=== PATIENT | male | born 1970 | race Caucasian/White ===

== ENCOUNTER 2022-11-16 20:20 | Emergency (ER) | payer MEDICARE, MEDICAID ==
[~2022-11-16] VITALS: Ht 182.9 cm; Wt 72.7 kg
[2022-11-16 20:44] VITALS: BP 117/81
[2022-11-16 21:31] LABS: BASOPHILS # (AUTO) 0.1 X10'3 (0-0.2); EOSINOPHILS # (AUTO) 0.2 X10'3 (0-0.9); EOSINOPHILS % (AUTO) 2.7 % (0-6); HEMATOCRIT 37.4 % (42.0-52.0); HEMOGLOBIN 12.7 g/dl (14.0-17.9); LYMPHOCYTES # (AUTO) 2.5 X10'3 (1.1-4.8); MEAN CORPUSCULAR HEMOGLOBIN 30.8 PG (27.0-31.0); MEAN CORPUSCULAR VOLUME 90.8 FL (78-98); MEAN PLATELET VOLUME 7.1 FL (7.4-10.4); MONOCYTES # (AUTO) 0.5 X10'3 (0-0.9); MONOCYTES % (AUTO) 7.7 % (2-12); NEUTROPHILS # (AUTO) 3.2 X10'3 (1.8-7.7); NEUTROPHILS % (AUTO) 49.6 % (42-75); PLATELET COUNT 277 X10'3 (140-440); RED BLOOD COUNT 4.12 X10'6 (4.70-6.10); RED CELL DISTRIBUTION WIDTH 14.6 % (11.5-14.5); WHITE BLOOD COUNT 6.4 X10'3 (4.5-11.0)
[2022-11-16] MEDS ORDERED: LORazepam 2 mg/ml vial IM ONE (21:45)
[2022-11-16 21:46] LABS: ALANINE AMINOTRANSFERASE 32 U/L (12-78); ALBUMIN 3.8 G/DL (3.4-5.0); ALBUMIN/GLOBULIN RATIO 1.4 (1.1-1.5); ALKALINE PHOSPHATASE 137 IU/L (46-116); ANION GAP 8 (8-16); ASPARTATE AMINO TRANSFERASE 23 U/L (10-37); BILIRUBIN,TOTAL 0.3 MG/DL (0.1-1.0); BLOOD UREA NITROGEN 19 MG/DL (7-18); BUN/CREATININE RATIO 15.7 (10.0-20.0); CALCIUM 9.5 MG/DL (8.5-10.1); CHLORIDE 104 MMOL/L (99-107); CREATININE 1.21 MG/DL (0.60-1.10); GLUCOSE 97 MG/DL (70-104); POTASSIUM 4.2 MMOL/L (3.5-5.1); SODIUM 139 MMOL/L (135-145); TOTAL CARBON DIOXIDE 26.9 MMOL/L (24-32); TOTAL PROTEIN 6.5 G/DL (6.4-8.2); eGFR 63 ML/MIN
[2022-11-16 22:07] LABS: ETHANOL < 0.010 GM/DL (0.0-0.010)
== END 2022-11-16 22:05 | disposition home or self-care (01) ==
LOC: ER 20:21
DX: F41.9 Anxiety disorder, unspecified (principal); Z20.822 Contact with and (suspected) exposure to COVID-19; F15.10 Other stimulant abuse, uncomplicated; Z88.8 Allergy status to other drugs, medicaments and biological substances
CPT/HCPCS: 36415; 80053; 80320; 85025; 87811; 96372; 99283; J2060

== ENCOUNTER 2022-11-17 20:24 | Emergency (ER) | payer MEDICARE, MEDICAID ==
[~2022-11-17] VITALS: Ht 182.9 cm; Wt 70.5 kg
[2022-11-17] MEDS ORDERED: sulfamethoxazole/trimethoprim DS (800/160mg) tablet PO ONE (21:30)
[2022-11-17 21:58] LABS: BASOPHILS # (AUTO) 0.1 X10'3 (0-0.2); BASOPHILS % (AUTO) 1.2 % (0-1); EOSINOPHILS # (AUTO) 0.2 X10'3 (0-0.9); EOSINOPHILS % (AUTO) 3.5 % (0-6); HEMATOCRIT 37.6 % (42.0-52.0); HEMOGLOBIN 12.7 g/dl (14.0-17.9); LYMPHOCYTES # (AUTO) 2.6 X10'3 (1.1-4.8); LYMPHOCYTES % (AUTO) 38.8 % (21-51); MEAN CORPUSCULAR HEMOGLOBIN 31.2 PG (27.0-31.0); MEAN CORPUSCULAR HGB CONC 33.7 g/dL (33.0-36.5); MEAN CORPUSCULAR VOLUME 92.6 FL (78-98); MEAN PLATELET VOLUME 7.2 FL (7.4-10.4); MONOCYTES # (AUTO) 0.6 X10'3 (0-0.9); MONOCYTES % (AUTO) 8.4 % (2-12); NEUTROPHILS # (AUTO) 3.2 X10'3 (1.8-7.7); NEUTROPHILS % (AUTO) 48.1 % (42-75); PLATELET COUNT 304 X10'3 (140-440); RED BLOOD COUNT 4.06 X10'6 (4.70-6.10); RED CELL DISTRIBUTION WIDTH 14.4 % (11.5-14.5); WHITE BLOOD COUNT 6.7 X10'3 (4.5-11.0)
[2022-11-17 22:08] LABS: ALANINE AMINOTRANSFERASE 34 U/L (12-78); ALBUMIN 3.8 G/DL (3.4-5.0); ALBUMIN/GLOBULIN RATIO 1.4 (1.1-1.5); ALKALINE PHOSPHATASE 134 IU/L (46-116); ANION GAP 7 (8-16); ASPARTATE AMINO TRANSFERASE 24 U/L (10-37); BILIRUBIN,TOTAL 0.3 MG/DL (0.1-1.0); BLOOD UREA NITROGEN 18 MG/DL (7-18); BUN/CREATININE RATIO 17.1 (10.0-20.0); CALCIUM 9.7 MG/DL (8.5-10.1); CHLORIDE 105 MMOL/L (99-107); CREATININE 1.05 MG/DL (0.60-1.10); GLUCOSE 81 MG/DL (70-104); POTASSIUM 4.4 MMOL/L (3.5-5.1); SODIUM 142 MMOL/L (135-145); TOTAL CARBON DIOXIDE 29.9 MMOL/L (24-32); TOTAL PROTEIN 6.6 G/DL (6.4-8.2); eGFR 74 ML/MIN
[2022-11-17 22:18] LABS: ETHANOL < 0.010 GM/DL (0.0-0.010)
[2022-11-18 11:57] LABS: CLARITY,URINE CLEAR (Clear); COLOR,URINE STRAW (Yellow); GLUCOSE, URINE NEGATIVE (Neg); KETONES,URINE NEGATIVE (Neg); LEUKOCYTE ESTERASE ,URINE NEGATIVE (Neg); NITRITES, URINE NEGATIVE (Neg); OCCULT BLOOD,URINE NEGATIVE (Neg); PROTEIN,URINE NEGATIVE (Neg); UROBILINOGEN,URINE 0.2 E.U/dL (0.2-1.0)
[2022-11-18 11:58] LABS: UA COLLECTION TYPE CLN CATCH MIDSTREAM
[2022-11-18 12:22] LABS: URINE AMPHETAMINE SCREEN POSITIVE (Neg); URINE BARBITUATE SCREEN NEGATIVE (Neg); URINE BENZODIAZEPINES SCREEN NEGATIVE (Neg); URINE CANNABINOID SCREEN POSITIVE (Neg); URINE COCAINE SCREEN NEGATIVE (Neg); URINE METHADONE SCREEN NEGATIVE (Neg); URINE OPIATE SCREEN NEGATIVE (Neg); URINE PHENCYCLIDINE SCREEN NEGATIVE (Neg)
--- NOTE | 2022-11-18 18:27 | NUR ---
assumed care of the pt. the patient has eaten 100% of dinner tray and now is resting on the gurney with blanket. pt states no needs at this time.
--- NOTE | 2022-11-19 03:08 | NUR ---
PT IS SLEEPING ON THE GURNEY. RR ARE EQUAL AND UNLABORED. NO DISTRESS OBSERVED.
[2022-11-19 07:20] VITALS: BP 113/67
--- NOTE | 2022-11-19 07:21 | NUR ---
Patient woke up when I made my rouds. Patient a/o x4, no signs of distress. Patient aware that he got accepted at [facility] and will be transfer there today. Second Covid 19 test done and sent to lab.
--- NOTE | 2022-11-19 07:33 | NUR ---
Received a phone call from Damari at [facility] to confirm that patient has been accepted at [facility]. I let her know that the second Covid test result is negative. She requested for the latest covid 19 test result to be fax to [facility] [phone]. Asad notified about this request
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
== END 2022-11-19 09:06 | disposition still patient (30) ==
LOC: ER 20:24
DX: R45.851 Suicidal ideations (principal); Z20.822 Contact with and (suspected) exposure to COVID-19; L08.9 Local infection of the skin and subcutaneous tissue, unspecified; Z88.8 Allergy status to other drugs, medicaments and biological substances
CPT/HCPCS: 36415; 80053; 80305; 80320; 81003; 84443; 85025; 87811; 99285

== ENCOUNTER 2024-10-20 13:16 | Emergency (ER) | payer MEDICARE, MEDICAID ==
[~2024-10-20] VITALS: Ht 177.8 cm; Wt 68.2 kg
[~2024-10-20 13:16] MED LIST: FERR-28 PO; LORA-269 PO; PANT-47 PO
--- NOTE | 2024-10-20 14:38 | ELECTROCARDIOGRAPH REPORT ---
[facility] Test Date: 2024-10-20 Test Time: 14:36:04 Pat Name: MEDHAT COYNE Department: EMERGENCY ROOM Room: Gender: M Gwot Ia/[employer] Support: NIKUNJ : 1970 Requested By: STEPHANIE CORTÉS Order Number: [id number] Reading MD: Measurements Intervals [place] Rate: 66 P: -8 MO: 153 QRS: 49 QRSD: 86 T: 60 QT: 425 QTc: 446 Interpretive Statements Sinus rhythm Left ventricular hypertrophy Please click the below link to view image of tracing.
--- NOTE | 2024-10-20 14:51 | RADIOLOGY REPORT ---
CHEST RADIOGRAPH Indication: CP Technique: Single frontal view of the chest was obtained Comparison: None FINDINGS: Lines and Tubes: ACDF. Lungs: No focal consolidation. Pleura: No effusion. No pneumothorax. Cardiomediastinal contours: Unremarkable Bones: No acute osseous abnormality. IMPRESSION: 1. No acute cardiopulmonary disease.
[2024-10-20 14:55] LABS: BASOPHILS % (AUTO) 0.6 % (0-1); EOSINOPHILS # (AUTO) 0.1 X10'3 (0-0.9); EOSINOPHILS % (AUTO) 1.8 % (0-6); HEMATOCRIT 30.9 % (42.0-52.0); HEMOGLOBIN 10.3 g/dl (14.0-17.9); LYMPHOCYTES # (AUTO) 1.1 X10'3 (1.1-4.8); LYMPHOCYTES % (AUTO) 13.5 % (21-51); MEAN CORPUSCULAR HEMOGLOBIN 28.8 PG (27.0-31.0); MEAN CORPUSCULAR HGB CONC 33.3 g/dL (33.0-36.5); MEAN CORPUSCULAR VOLUME 86.4 FL (78-98); MEAN PLATELET VOLUME 7.5 FL (7.4-10.4); MONOCYTES # (AUTO) 0.4 X10'3 (0-0.9); MONOCYTES % (AUTO) 4.5 % (2-12); NEUTROPHILS # (AUTO) 6.3 X10'3 (1.8-7.7); NEUTROPHILS % (AUTO) 79.6 % (42-75); PLATELET COUNT 287 X10'3 (140-440); RED BLOOD COUNT 3.57 X10'6 (4.70-6.10); RED CELL DISTRIBUTION WIDTH 17.7 % (11.5-14.5)
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
[2024-10-20 15:13] LABS: ALANINE AMINOTRANSFERASE 16 U/L (12-78); ALBUMIN 3.3 G/DL (3.4-5.0); ALBUMIN/GLOBULIN RATIO 1.1 (1.1-1.5); ALKALINE PHOSPHATASE 136 IU/L (46-116); ANION GAP 8 (8-16); ASPARTATE AMINO TRANSFERASE 13 U/L (10-37); BILIRUBIN,TOTAL 0.4 MG/DL (0.1-1.0); BLOOD UREA NITROGEN 9 MG/DL (7-18); BUN/CREATININE RATIO 10.3 (10.0-20.0); CALCIUM 8.9 MG/DL (8.5-10.1); CHLORIDE 106 MMOL/L (99-107); CREATININE 0.87 MG/DL (0.60-1.10); GLUCOSE 101 MG/DL (70-104); POTASSIUM 3.7 MMOL/L (3.5-5.1); SODIUM 143 MMOL/L (135-145); TOTAL CARBON DIOXIDE 28.8 MMOL/L (24-32); TOTAL PROTEIN 6.3 G/DL (6.4-8.2); eCRCL 93 ML/MIN; eGFR > 90 ML/MIN
[2024-10-20 15:21] LABS: PRO BRAIN NATRIURETIC PEPTIDE 157 PG/ML (0-125)
[2024-10-20] MEDS ORDERED: PANT20TA2 PO (15:28)
[2024-10-20 15:54] VITALS: BP 138/74; PULSE 78; RESP 15; TEMP 99.1; O2SAT 100
--- NOTE | 2024-10-21 18:10 | PATHOLOGY REPORT ---
[facility] [address] [place] [address] SURGICAL PATHOLOGY REPORT CaseNumber: [id number] Surgeon:Kenji Haddad M.D. CLINICAL INFORMATION CLINICAL INFORMATION: GI bleed. DIAGNOSIS DIAGNOSIS: STOMACH, ANTRUM; BIOPSY - MILD CHRONIC INFLAMMATION. - NEGATIVE FOR INTESTINAL METAPLASIA. - NEGATIVE FOR DYSPLASIA/NEOPLASIA. MICROSCOPIC DESCRIPTION MICROSCOPIC DESCRIPTION: Two slides are examined. Present are two pieces of gastric mucosa. One has w ell-developed specialized compartment - no evidence of atrophy. There is a mild chronic inflammatory infiltrate composed predominantly of lymphocytes with occasional plasma cells and eosinophils. There is no significant active inflammation, no intestinal metaplasia by routine light microscopy, and no d ysplasia/neoplasia. (st) GROSS DESCRIPTION GROSS DESCRIPTION: Received in a container of formalin labeled with the patient's name, number, and " antrum BX" are 2 pieces of pitts tissue both 0.2 cm. The specimen is entirely submitted as A1. The time at which the specimen was removed was 1333. The time at which the specimen was placed in formalin wa s 1334. Electronically signed by: Stefan Delgado M.D. 10/21/2024 5:30:00 PM
== END 2024-10-20 16:00 | disposition home or self-care (01) ==
LOC: ER 13:16
DX: D50.0 Iron deficiency anemia secondary to blood loss (chronic) (principal); F15.10 Other stimulant abuse, uncomplicated; F20.9 Schizophrenia, unspecified; Z88.5 Allergy status to narcotic agent
CPT/HCPCS: 36415; 71045; 80053; 83880; 84484; 85025; 93005; 99285

== ENCOUNTER 2024-11-02 00:34 | Emergency (ER) | payer MEDICARE, MEDICAID ==
[~2024-11-02] VITALS: Ht 177.8 cm; Wt 72.0 kg
[~2024-11-02 00:34] MED LIST changes: +PANT20TA2 PO
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
[2024-11-02] MEDS: ketorolac trometh 30MG/ML vial 30 MG/ML VIAL IM ONE (02:00)
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
[2024-11-02 03:04] VITALS: BP 148/92; PULSE 98; RESP 18; TEMP 98.2; O2SAT 96
== END 2024-11-02 03:10 | disposition home or self-care (01) ==
LOC: ER 00:35
DX: R07.81 Pleurodynia (principal); G89.11 Acute pain due to trauma; F20.9 Schizophrenia, unspecified; Z88.5 Allergy status to narcotic agent; W05.0XXA Fall from non-moving wheelchair, initial encounter; Y93.89 Activity, other specified; Y92.89 Other specified places as the place of occurrence of the external cause; Y99.8 Other external cause status
CPT/HCPCS: 71250; 74176; 96372; 99285; J1885

== ENCOUNTER 2024-11-08 13:18 | Emergency (ER) | payer MEDICARE, MEDICAID ==
[~2024-11-08] VITALS: Ht 177.8 cm; Wt 68.2 kg
--- NOTE | 2024-11-08 14:25 | RADIOLOGY REPORT ---
CHEST RADIOGRAPH Indication: CP Technique: Single frontal view of the chest was obtained Comparison: None FINDINGS: Cervical fusion hardware. The cardiac silhouette is unremarkable. The lungs demonstrate no pulmonary airspace consolidation. Th e pulmonary vasculature is unremarkable. There is no pleural effusion.. There is no pneumothorax. Ao rtic atherosclerotic disease. Thoracic dextrocurvature. IMPRESSION: No pulmonary airspace consolidation.
[2024-11-08 14:31] VITALS: RESP 20
[2024-11-08 14:38] LABS: BASOPHILS # (AUTO) 0.1 X10'3 (0-0.2); BASOPHILS % (AUTO) 0.7 % (0-1); EOSINOPHILS # (AUTO) 0.1 X10'3 (0-0.9); EOSINOPHILS % (AUTO) 1.7 % (0-6); HEMATOCRIT 34.8 % (42.0-52.0); HEMOGLOBIN 11.2 g/dl (14.0-17.9); LYMPHOCYTES # (AUTO) 1.6 X10'3 (1.1-4.8); LYMPHOCYTES % (AUTO) 21.2 % (21-51); MEAN CORPUSCULAR HEMOGLOBIN 26.9 PG (27.0-31.0); MEAN CORPUSCULAR HGB CONC 32.3 g/dL (33.0-36.5); MEAN CORPUSCULAR VOLUME 83.4 FL (78-98); MONOCYTES # (AUTO) 0.6 X10'3 (0-0.9); MONOCYTES % (AUTO) 8.2 % (2-12); NEUTROPHILS # (AUTO) 5.2 X10'3 (1.8-7.7); NEUTROPHILS % (AUTO) 68.2 % (42-75); PLATELET COUNT 567 X10'3 (140-440); RED BLOOD COUNT 4.18 X10'6 (4.70-6.10); RED CELL DISTRIBUTION WIDTH 16.4 % (11.5-14.5); WHITE BLOOD COUNT 7.6 X10'3 (4.5-11.0)
[2024-11-08 14:49] LABS: ALBUMIN 3.6 G/DL (3.4-5.0); ANION GAP 9 (8-16); BLOOD UREA NITROGEN 12 MG/DL (7-18); CALCIUM 9.3 MG/DL (8.5-10.1); CHLORIDE 103 MMOL/L (99-107); CREATININE 0.86 MG/DL (0.60-1.10); GLUCOSE 98 MG/DL (70-104); POTASSIUM 4.2 MMOL/L (3.5-5.1); PRO BRAIN NATRIURETIC PEPTIDE 83 PG/ML (0-125); SODIUM 141 MMOL/L (135-145); TOTAL CARBON DIOXIDE 28.6 MMOL/L (24-32); eCRCL 94 ML/MIN; eGFR > 90 ML/MIN
--- NOTE | 2024-11-08 14:56 | Physician Documentation ---
History of Present Illness General Chief Complaint: Chest Pain Stated Complaint: CP Time Seen by MD: 14:39 Primary Medical Doctor: NONE History of Present Illness Initial Comments The patient is a 53-year-old male with a lifelong history of smoking cigarettes. This morning, he was coughing up some yellow phlegm and experienced sudden sharp chest pain along his lower ribs bilaterally. This is continued with movement and deep breathing. Medication Reconciliation Allergies: Coded Allergies: cabbage (Verified Allergy, Severe, ANAPHYLAXIS, 11/02/24) tramadol (Verified Allergy, Intermediate, VOMITTING, 11/02/24) olanzapine (Verified Allergy, Unknown, HYPOTENSION, 11/02/24) Scheduled Azithromycin (Zithromax), 1 TAB PO DAILY Ferrous Sulfate (Iron), 1 TAB PO Q12H Pantoprazole Sodium (PROTONIX tablet), 40 MG PO Q12H Pantoprazole Sodium (Protonix), 1 TAB PO DAILY Scheduled PRN Ibuprofen (Ibuprofen), 1 TAB PO Q6H PRN for pain Lorazepam (Ativan), 1 TAB PO Q12H PRN PRN for for anxiety/agitation Past Medical History Past Medical History: Seizures, GI Bleed, *PSYCH*, Bipolar, Panic Disorder, Schizophrenia Review of Systems ROS Constitutional: Denies chills, fatigue, fever, weight gain or weight loss. HEENT: Denies hearing loss, sinus pressure or visual changes. Respiratory: Denies cough, shortness of breath or wheezing. Cardiovascular: Chest pain along both sides of his lower ribs with deep breathing and movement. Gastrointestinal: Denies abdominal pain, blood in stool, constipation, diar darline, heartburn, loss of appetite, nausea or vomiting. Genitourinary: Denies painful urination (dysuria), excessive amount of urine (polyuria) or urinary frequency. Metabolic/Endocrine: Denies cold intolerance, heat intolerance, excessive thirst (polydipsia) or excessive hunger (polyphagia). Neurological: Denies dizziness, extremity numbness, extremity weakness, headaches, seizures or tremors. Psychiatric: Denies anxiety or depression. Integumentary: Denies breast discharge, breast lump, hives, mole change(s), rash or skin lesion. Musculoskeletal: Denies back pain, joint pain, joint swelling or neck pain. Hematologic: Denies easily bleeding, easily bruises, lymphedema or issues with blood clots. Immunologic: Denies food allergies or seasonal allergies. Physical Exam Physical Exam Vital Signs: Heart Rate: 86, Respiratory Rate: 18, BP: 142/85, Pulse Oximetry: 100, Weight: 68.200 Physical Exam Physical Exam Vitals and nursing note reviewed. Constitutional: General: Patient is awake, alert, oriented x 4 in no acute distress and well appearing. Speech is clear and lucid. Appearance: Normal appearance. Patient is not ill-appearing, toxic-appearing or diaphoretic. HENT: Head: Normocephalic and atraumatic. Mouth/Throat: Mouth: Mucous membranes are moist. Pharynx: Oropharynx is clear. Eyes: General: No scleral icterus. Extraocular Movements: Extraocular movements intact. Pupils: Pupils are equal, round, and reactive to light. Cardiovascular: Rate and Rhythm: Normal rate and regular rhythm. Heart sounds: No murmur heard. Pulmonary: Effort: No respiratory distress. Breath sounds: No wheezing, rhonchi or rales. Abdominal: General: There is no distension. Palpations: There is no fluid wave, hepatomegaly or mass. Tenderness: There is no abdominal tenderness. There is no guarding. Musculoskeletal: General: No swelling or deformity. Skin: Coloration: Skin is not jaundiced. Findings: No erythema or rash. Neurological: Mental Status: Patient is alert. Progress Results/Orders Results/Orders Orders - MAYA BENAVIDEZ MD Chest,Single View (11/08/24 13:36) Monitor (11/08/24 13:36) Saline Lock (11/08/24 13:36) Oxygen (11/08/24 13:36) Electrocardiogram (11/08/24 13:36) Hs Troponin I W Calculations (11/08/24 15:36) Hs Troponin I W Calculations (11/08/24 16:36) Completed Orders - MAYA BENAVIDEZ MD Chest,Single View (11/08/24 13:36) Cbc/Diff (11/08/24 13:36) BMP (11/08/24 13:36) PBNP (11/08/24 13:36) Hs Troponin I W Calculations (11/08/24 13:36) Vital Signs 11/08/24 13:30 Pulse 86 Resp 18 B/P (MAP) 142/85 Pulse Ox 100 Laboratory Tests Test 11/08/24 14:03 White Blood Count 7.6 Red Blood Count 4.18 L Hemoglobin 11.2 L Hematocrit 34.8 L Mean Corpuscular Volume 83.4 Mean Corpuscular Hemoglobin 26.9 L Mean Corpuscular Hemoglobin Concent 32.3 L Red Cell Distribution Width 16.4 H Platelet Count 567 H Mean Platelet Volume 7.0 L Neutrophils (%) (Auto) 68.2 Lymphocytes (%) (Auto) 21.2 Monocytes (%) (Auto) 8.2 Eosinophils (%) (Auto) 1.7 Basophils (%) (Auto) 0.7 Neutrophils # (Auto) 5.2 Lymphocytes # (Auto) 1.6 Monocytes # (Auto) 0.6 Eosinophils # (Auto) 0.1 Basophils # (Auto) 0.1 CBC Comment Sodium Level 141 Potassium Level 4.2 Chloride Level 103 Carbon Dioxide Level 28.6 Anion Gap 9 Blood Urea Nitrogen 12 Creatinine 0.86 Estimated GFR/1.73 m2 > 90 BUN/Creatinine Ratio 14.0 Glucose Level 98 Calcium Level 9.3 Troponin I High Sensitivity 11 Pro-B-Type Natriuretic Peptide 83 Albumin 3.6 Chemistry Comments Medical Decision Making Findings This 53-year-old male experienced chest pain along both sides of his lower ribs while coughing up yellow phlegm this morning. EKG is unremarkable. His chest x-rays unremarkable, no pneumothorax. Laboratory data are unremarkable. I am going to start the patient on a Z-Clay for his COPD and prescribe some NSAIDs for his chest wall pain. Departure Disposition: 01 HOME / SELF CARE / HOMELESS Impression: Primary Impression: Chest wall pain Condition: Stable Referrals: NO PRIMARY CARE PROVIDER (PCP) Prescriptions Ibuprofen (Ibuprofen) 600 Mg Tablet 1 TAB PO Q6H PRN for pain, #30 TAB Prov: MAYA BENAVIDEZ MD 11/08/24 Azithromycin (Zithromax) 250 Mg Tablet 1 TAB PO DAILY, #6 TAB azithromycin z pack as directed in packaging Prov: MAYA BENAVIDEZ MD 11/08/24 Signature Scribe Signature: . Attestation: . MAYA BENAVIDEZ MD Nov 08, 2024 14:56
[2024-11-08] MEDS ORDERED: AZIT-164 PO (14:59)
[2024-11-08] MEDS ORDERED: IBUP-1985 PO (14:59)
[2024-11-08 15:33] VITALS: BP 145/82; PULSE 80; O2SAT 100
--- NOTE | 2024-11-08 16:30 | ELECTROCARDIOGRAPH REPORT ---
[facility] Test Date: 2024-11-08 Test Time: 13:42:54 Pat Name: MEDHAT COYNE Department: EMERGENCY ROOM Room: Gender: M [employer]: NIKUNJ : 1970 Requested By: MAYA BENAVIDEZ Order Number: [id number] Reading MD: Measurements Intervals [place] Rate: 84 P: 53 NV: 154 QRS: 67 QRSD: 81 T: 28 QT: 382 QTc: 452 Interpretive Statements Sinus rhythm Baseline wander in lead(s) V3 Please click the below link to view image of tracing.
== END 2024-11-08 15:38 | disposition home or self-care (01) ==
LOC: ER 13:18
DX: R07.89 Other chest pain (principal); R05.9 Cough, unspecified; F20.9 Schizophrenia, unspecified; R06.02 Shortness of breath; Z88.5 Allergy status to narcotic agent; Z87.891 Personal history of nicotine dependence
CPT/HCPCS: 36415; 71045; 80048; 83880; 84484; 85025; 93005; 99285

== ENCOUNTER 2024-11-17 08:23 | Emergency (ER) | payer MEDICARE, MEDICAID ==
[~2024-11-17] VITALS: Ht 172.7 cm; Wt 68.2 kg
[~2024-11-17 08:23] MED LIST changes: +AZIT-164 PO; +IBUP-1985 PO
[2024-11-17 08:35] VITALS: BP 142/84; PULSE 74; RESP 16; TEMP 98.9; O2SAT 99
--- NOTE | 2024-11-17 09:16 | RADIOLOGY REPORT ---
EXAM: DI CHEST,SINGLE VIEW HISTORY: CP COMPARISON: DI CHEST,SINGLE VIEW on DOS: 11/08/24, DI CHEST,SINGLE VIEW on DOS: 10/20/24 TECHNIQUE: Portable upright AP view of the chest was performed. FINDINGS: No pneumothorax, consolidative infiltrates, or pulmonary edema. The heart is not enlarged. There is t horacic dextroscoliosis. Surgical clips in the right upper quadrant are consistent with prior cholecy stectomy. IMPRESSION: No acute intrathoracic process.
--- NOTE | 2024-11-17 09:24 | Physician Documentation ---
History of Present Illness ~ Chief Complaint: Rib pain Stated Complaint: RIB PAIN Primary Medical Doctor: NONE HPI 53-year-old wheelchair bound male who was brought in by EMS for bilateral lower rib pain and bilateral hand pain. Patient reports bilateral rib pain present fo r two weeks. Patient reports bilateral hand pain present for one-week and reports due to his hands to push his wheelchair. Tetanus within 5 Years?: Yes Allergies: Coded Allergies: cabbage (Verified Allergy, Severe, ANAPHYLAXIS, 11/02/24) tramadol (Verified Allergy, Intermediate, VOMITTING, 11/02/24) olanzapine (Verified Allergy, Unknown, HYPOTENSION, 11/02/24) Active Prescriptions See Medication Reconciliation Form. Medication Reconciliation Scheduled Azithromycin (Zithromax), 1 TAB PO DAILY Ferrous Sulfate (Iron), 1 TAB PO Q12H Pantoprazole Sodium (PROTONIX tablet), 40 MG PO Q12H Pantoprazole Sodium (Protonix), 1 TAB PO DAILY Scheduled PRN Ibuprofen (Ibuprofen), 1 TAB PO Q6H PRN for pain Lorazepam (Ativan), 1 TAB PO Q12H PRN PRN for for anxiety/agitation Past Medical History Past Medical History: Seizures, GI Bleed, *PSYCH*, Bipolar, Panic Disorder, Schizophrenia Review of Systems ROS As stated above in the HPI, otherwise all systems are reviewed and negative. Physical Exam Vital Signs: Temperature: 98.9, Source: Temporal, Heart Rate: 74, Respiratory Rate: 16, BP: 142/84, Pulse Oximetry: 99, Weight: 68.200 Oxygen Flow Rate: 0 Physical Exam VITALS: Reviewed and as above. GENERAL: Alert, nontoxic appearing, no apparent distress. RESPIRATORY: No increased work of breathing, no respiratory distress, speaking in full clear sentences Progress Results/Orders Results/Orders Vital Signs 11/17/24 08:35 Temp 98.9 Pulse 74 Resp 16 B/P (MAP) 142/84 Pulse Ox 99 O2 Flow Rate 0 Medical Decision Making Findings MSE performed in triage and patient returned to ED lobby by nursing staff Departure Referrals: NO PRIMARY CARE PROVIDER (PCP) JULIANA TRIVEDI Nov 17, 2024 09:24
[2024-11-18] MEDS ORDERED: NO HOME MEDS (14:32)
== END 2024-11-17 13:05 | disposition left against medical advice (07) ==
LOC: ER 08:24
DX: R07.81 Pleurodynia (principal); M79.641 Pain in right hand; M79.642 Pain in left hand; F20.9 Schizophrenia, unspecified; Z88.5 Allergy status to narcotic agent
CPT/HCPCS: 71045; 99283

== ENCOUNTER 2024-11-18 13:37 | Emergency (ER) | payer MEDICARE, MEDICAID ==
[~2024-11-18] VITALS: Ht 177.8 cm; Wt 68.2 kg
--- NOTE | 2024-11-18 14:04 | Physician Documentation ---
History of Present Illness ~ Chief Complaint: Suicidal Ideation Stated Complaint: SI Time Seen by MD: 13:55 Primary Medical Doctor: NONE HPI 53-year-old disabled male presents to the ED with a complaint of suicide ideation. He states he is thinking of we will in his wheelchair out in the middle of traffic as he has so many life hardships. Medication Reconciliation Allergies: Coded Allergies: cabbage (Verified Allergy, Severe, ANAPHYLAXIS, 11/18/24) tramadol (Verified Allergy, Intermediate, VOMITTING, 11/18/24) olanzapine (Verified Allergy, Unknown, HYPOTENSION, 11/18/24) Miscellaneous Medications Home Med List (No Home Medications), (Reported) Discontinued Medications Azithromycin (Zithromax), 1 TAB PO DAILY Discontinued Reason: patient no longer taking Ferrous Sulfate (Iron), 1 TAB PO Q12H Discontinued Reason: patient no longer taking Ibuprofen (Ibuprofen), 1 TAB PO Q6H PRN for pain Discontinued Reason: patient no longer taking Lorazepam (Ativan), 1 TAB PO Q12H PRN PRN for for anxiety/agitation Discontinued Reason: patient no longer taking Pantoprazole Sodium (PROTONIX tablet), 40 MG PO Q12H Discontinued Reason: patient no longer taking Pantoprazole Sodium (Protonix), 1 TAB PO DAILY Discontinued Reason: patient no longer taking Past Medical History Past Medical History: Seizures, GI Bleed, *PSYCH*, Bipolar, Panic Disorder, Schizophrenia Physical Exam Vital Signs: Temperature: 98.5, Source: Temporal, Heart Rate: 80, Respiratory Rate: 15, BP: 127/77, Pulse Oximetry: 98, Weight: 68.180 Progress Results/Orders Results/Orders Orders - VÍCTOR SMITH MD Acetaminophen 325mg Tablet (Tylenol Tabl (11/19/24 10:35) Completed Orders - VÍCTOR SMITH MD Naproxen Tablet (Naprosyn Tablet) (11/19/24 12:55) Vital Signs 11/18/24 11/18/24 11/19/24 11/19/24 13:47 22:40 05:28 12:34 Temp 98.5 98.1 Pulse 80 66 Resp 15 16 16 B/P (MAP) 127/77 132/85 (101) Pulse Ox 98 99 O2 Flow Rate 0 11/19/24 11/19/24 11/20/24 17:35 19:05 05:06 Temp 98.1 97.8 Pulse 67 61 Resp 18 16 B/P (MAP) 150/84 (106) 150/82 (104) Pulse Ox 98 99 O2 Flow Rate 0 Laboratory Tests Test 11/18/24 14:27 11/18/24 14:28 11/18/24 16:30 SARS-CoV-2 Antigen (Rapid) Negative White Blood Count 6.9 Red Blood Count 4.02 L Hemoglobin 10.5 L Hematocrit 32.8 L Mean Corpuscular Volume 81.7 Mean Corpuscular Hemoglobin 26.1 L Mean Corpuscular Hemoglobin Concent 31.9 L Red Cell Distribution Width 16.0 H Platelet Count 465 H Mean Platelet Volume 7.0 L Neutrophils (%) (Auto) 61.9 Lymphocytes (%) (Auto) 25.8 Monocytes (%) (Auto) 7.5 Eosinophils (%) (Auto) 3.9 Basophils (%) (Auto) 0.9 Neutrophils # (Auto) 4.3 Lymphocytes # (Auto) 1.8 Monocytes # (Auto) 0.5 Eosinophils # (Auto) 0.3 Basophils # (Auto) 0.1 CBC Comment Sodium Level 139 Potassium Level 3.7 Chloride Level 104 Carbon Dioxide Level 29.0 Anion Gap 6 L Blood Urea Nitrogen 19 H Creatinine 0.94 Estimated GFR/1.73 m2 83 BUN/Creatinine Ratio 20.2 H Glucose Level 115 H Calcium Level 9.2 Albumin 3.4 Thyroid Stimulating Hormone (TSH) 1.75 Chemistry Comments Ethyl Alcohol Level < 10 Urine Specimen Description Cln catch midstream Urine Color Yellow Urine Clarity Slightly cloudy Urine pH 6.5 Urine Specific [place] 1.010 Urine Protein Negative Urine Glucose (UA) Negative Urine Ketones Negative Urine Occult Blood Negative Urine Nitrite Negative Urine Bilirubin Negative Urine Urobilinogen 0.2 Urine Leukocyte Esterase Negative Urine RBC None seen Urine WBC None seen Urine Squamous Epithelial Cells None seen Urine Amorphous Phosphates 3+ Urine Bacteria Few Urine Mucus None seen Volume Urine Centrifuged 10 ml Urine Comment Urine Opiates Screen Negative Urine Methadone Screen Negative Urine Fentanyl Screen Negative Urine Barbiturates Screen Negative Urine Phencyclidine Screen Negative Urine Amphetamines Screen Negative Urine Benzodiazepines Screen Negative Urine Cocaine Screen Negative Urine Cannabinoids Screen Positive Drug Screen Comment Medical Decision Making Findings Do not suspect that this patient currently wants to harm himself however feel it has obligatory to have [facility] evaluate him for more certainty. We will medically clear him when I receive laboratory values indicating there are within normal limits Clinical Status: unchanged Mental Status: Appearance: No change Behavior: Stable Mood/Affect: No change Thought Process: No change Insight/Judgment: No change Suicidal/Homicidal Ideation: Continues to be on hold Vital signs stable Physical Examination: Unchanged Medications Administered: Toradol 60 mg IM for pain Treatment Plan: Continue to monitor Continue current medications Reassess for changes in mental status Plan for next steps : Awaiting crisis team mental health evaluation Disposition: Not yet determined Patient remains on hold for psychiatric evaluation/placement. No acute changes in condition. Patient remains cooperative Plan to reassess during next shift. November 20, 2024 Patient is now accepted at [facility] for inpatient psychiatric treatment. Differential Dx:Considerations: Include: Alcohol abuse, Anxiety, Bipolar disorder, Conversion disorder, Depression, Encephaloathy, Homicidal, Panic disorder, Personality disorder, Schizophrenia, Substance abuse, Suicidal, Other Departure Impression: Primary Impression: Depression Condition: Stable Discharge Instructions: Medical Screening Exam Additional Instructions: Transfer orders for [facility]: At this time there is no evidence of an emergent medical condition that would preclude (admission/transfer) to a psychiatric unit via [facility] protocol for further psychiatric, as well as medical evaluation and treatment. At this time I have no reason to believe that transfer via [facility] protocol would have serious medical compromise in the patient's health. Referrals: NO PRIMARY CARE PROVIDER (PCP) Signature Scribe Signature: g Attestation: Scribed for Guzman Cortés [employer] by Guzman Chowdary NP . 11/18/24 18:23 GUZMAN CORTÉS NP Nov 18, 2024 14:04 VÍCTOR SMITH MD Nov 19, 2024 09:54
[2024-11-18] MEDS ORDERED: NO HOME MEDS (14:32)
[2024-11-18 14:41] LABS: BASOPHILS # (AUTO) 0.1 X10'3 (0-0.2); BASOPHILS % (AUTO) 0.9 % (0-1); EOSINOPHILS # (AUTO) 0.3 X10'3 (0-0.9); EOSINOPHILS % (AUTO) 3.9 % (0-6); HEMATOCRIT 32.8 % (42.0-52.0); HEMOGLOBIN 10.5 g/dl (14.0-17.9); LYMPHOCYTES # (AUTO) 1.8 X10'3 (1.1-4.8); LYMPHOCYTES % (AUTO) 25.8 % (21-51); MEAN CORPUSCULAR HEMOGLOBIN 26.1 PG (27.0-31.0); MEAN CORPUSCULAR HGB CONC 31.9 g/dL (33.0-36.5); MEAN CORPUSCULAR VOLUME 81.7 FL (78-98); MONOCYTES # (AUTO) 0.5 X10'3 (0-0.9); MONOCYTES % (AUTO) 7.5 % (2-12); NEUTROPHILS # (AUTO) 4.3 X10'3 (1.8-7.7); NEUTROPHILS % (AUTO) 61.9 % (42-75); PLATELET COUNT 465 X10'3 (140-440); RED BLOOD COUNT 4.02 X10'6 (4.70-6.10); WHITE BLOOD COUNT 6.9 X10'3 (4.5-11.0)
[2024-11-18 15:01] LABS: ALBUMIN 3.4 G/DL (3.4-5.0); ANION GAP 6 (8-16); BLOOD UREA NITROGEN 19 MG/DL (7-18); BUN/CREATININE RATIO 20.2 (10.0-20.0); CALCIUM 9.2 MG/DL (8.5-10.1); CHLORIDE 104 MMOL/L (99-107); CREATININE 0.94 MG/DL (0.60-1.10); GLUCOSE 115 MG/DL (70-104); POTASSIUM 3.7 MMOL/L (3.5-5.1); SODIUM 139 MMOL/L (135-145); THYROID STIMULATING HORMONE 1.75 ulU/ml (0.34-4.50); eCRCL 86 ML/MIN; eGFR 83 ML/MIN
[2024-11-18 15:08] LABS: ETHANOL < 10 MG/DL (<10)
[2024-11-18 16:59] LABS: BILIRUBIN,URINE NEGATIVE (Neg); CLARITY,URINE SLIGHTLY CLOUDY (Clear); COLOR,URINE YELLOW (Yellow); GLUCOSE, URINE NEGATIVE (Neg); KETONES,URINE NEGATIVE (Neg); LEUKOCYTE ESTERASE ,URINE NEGATIVE (Neg); NITRITES, URINE NEGATIVE (Neg); OCCULT BLOOD,URINE NEGATIVE (Neg); PH,URINE 6.5 (4.8-8.0); PROTEIN,URINE NEGATIVE (Neg); UROBILINOGEN,URINE 0.2 E.U/dL (0.2-1.0)
[2024-11-18 17:03] LABS: UA COLLECTION TYPE CLN CATCH MIDSTREAM
[2024-11-18 17:08] LABS: AMORPHOUS PHOSPHATES 3+; BACTERIA,URINE FEW /HPF (Neg); MUCUS STRANDS NONE SEEN /LPF (Neg); RBC,URINE NONE SEEN /HPF (0-2); SQUAMOUS EPITHELIAL CELL,UR NONE SEEN /LPF (FEW); WBC,URINE NONE SEEN /HPF (0-4)
[2024-11-18 17:17] LABS: URINE AMPHETAMINE SCREEN NEGATIVE (Neg); URINE BARBITUATE SCREEN NEGATIVE (Neg); URINE BENZODIAZEPINES SCREEN NEGATIVE (Neg); URINE CANNABINOID SCREEN POSITIVE (Neg); URINE COCAINE SCREEN NEGATIVE (Neg); URINE METHADONE SCREEN NEGATIVE (Neg); URINE OPIATE SCREEN NEGATIVE (Neg); URINE PHENCYCLIDINE SCREEN NEGATIVE (Neg)
[2024-11-19] MEDS: acetaminophen 325mg tablet PO PRN (10:45)
[2024-11-19] MEDS: naproxen 500mg tablet PO ONE (13:06)
[2024-11-19] MEDS: diphenhydrAMINE 25mg capsule PO ONE (19:15)
[2024-11-19] MEDS: haloperidol 5mg tablet PO ONE (19:15)
[2024-11-19] MEDS: LORazepam 1 MG tablet PO ONE (19:15)
[2024-11-20 10:37] VITALS: BP 150/82; PULSE 61; RESP 16; TEMP 97.8; O2SAT 99
== END 2024-11-20 10:44 ==
LOC: ER 13:37
DX: F32.A Depression, unspecified (principal); F20.9 Schizophrenia, unspecified; Z88.5 Allergy status to narcotic agent; Z88.8 Allergy status to other drugs, medicaments and biological substances; Z20.822 Contact with and (suspected) exposure to COVID-19
CPT/HCPCS: 36415; 80048; 80305; 81001; 84443; 85025; 87811; 99285; G0480; Q0163; 80320